=== PATIENT | male | born 1950 ===

== ENCOUNTER 2025-03-29 12:15 | Oncology outpatient (recurring) (ONCR) | payer MEDICARE, OTHER, SELFPAY | END 2025-04-10 23:59 | disposition home or self-care (01) | PROVIDERS: Visit Provider Internal Medicine Medical Oncology | DX: D3A.00 Benign carcinoid tumor of unspecified site (principal); C78.7 Secondary malignant neoplasm of liver and intrahepatic bile duct; E34.00 Carcinoid syndrome, unspecified; R63.4 Abnormal weight loss; K52.9 Noninfective gastroenteritis and colitis, unspecified; D64.9 Anemia, unspecified; Z68.21 Body mass index [BMI] 21.0-21.9, adult | CPT/HCPCS: 99205 ==